=== PATIENT | female | born 1985 | race Caucasian/White ===

== ENCOUNTER 2017-03-22 20:09 | Emergency (ER) | payer MEDICARE, OTHER ==
[~2017-03-22] VITALS: Wt 91.0 kg
--- NOTE | 2017-03-22 21:06 | ERD ---
ER Documentation Chief Complaint Date/Time DATE: 03/22/17 TIME: 21:03 Chief Complaint AP left lower quadrant. possible cyst per pt verbatum x1 wk intermittent HPI This 31-year-old female presents to emergency department today for evaluation ofleft sided ABD pain with vomiting x 5 today, symptoms started after eating chicken last week . pt has vomited all week intermitted. pt tried Advil for symptoms. symptoms worse with eating meat ROS All systems reviewed and are negative except as per history of present illness. Allergies Allergies: Coded Allergies: No Known Allergy (Unverified , 03/22/17) Physical Exam Vitals Vital Signs Date Time Temp Pulse Resp B/P Pulse Ox O2 Delivery O2 Flow Rate FiO2 03/22/17 20:14 98.6 74 20 117/82 97 Physical Exam Const: Obese well appearing well-hydrated, no acute distress Head: Eyes: ENT: Normal External Ears, Nose and Mouth. Neck: Full range of motion..~ No meningismus.Mucous membranes moist Resp: Clear to auscultation bilaterally no rales wheezes or rhonchi Cardio: S1-S2 no S3-S4 Regular rate and rhythm, no murmurs Abd: Abdomen soft, non-tympanic, left lower quadrant tenderness. Skin: Back: No midline or flank tenderness Ext: Neur: Awake and alert Psych: Normal Mood and Affect Result Diagram: 03/22/17212603/22/172126 Results 24 hrs Laboratory Tests Test 03/22/17 21:27 03/22/17 22:33 White Blood Count 11.910^3/ul Red Blood Count 5.3710^6/ul Hemoglobin 14.2g/dl Hematocrit 43.7% Mean Corpuscular Volume 81.4fl Mean Corpuscular Hemoglobin 26.4pg Mean Corpuscular Hemoglobin Concent 32.5g/dl Red Cell Distribution Width 13.4% Platelet Count 90452^3/UL Mean Platelet Volume 11.2fl Neutrophils % 84.9% Lymphocytes % 10.9% Monocytes % 3.5% Eosinophils % 0.0% Basophils % 0.3% Nucleated Red Blood Cells % 0.0/100WBC Neutrophils # (Manual) 10.110^3/ul Lymphocytes # 1.310^3/ul Monocytes # 0.410^3/ul Eosinophils # 0.010^3/ul Basophils # 0.010^3/ul Nucleated Red Blood Cells # 0.010^3/ul Sodium Level 143mmol/L Potassium Level 3.7mmol/L Chloride Level 105mmol/L Carbon Dioxide Level 29mmol/L Anion Gap 13 Blood Urea Nitrogen 9mg/dl Creatinine 0.70mg/dl Glucose Level 114mg/dl Calcium Level 9.7mg/dl Total Bilirubin 0.4mg/dl Direct Bilirubin 0.00mg/dl Indirect Bilirubin 0.4mg/dl Aspartate Amino Transf (AST/SGOT) 18IU/L Alanine Aminotransferase (ALT/SGPT) 35IU/L Alkaline Phosphatase 86IU/L Total Protein 7.8g/dl Albumin 4.4g/dl Globulin 3.40g/dl Albumin/Globulin Ratio 1.29 Lipase 32U/L Urine Color YELLOW Urine Clarity CLEAR Urine pH 6.0 Urine Specific [place] 1.023 Urine Ketones 1+mg/dL Urine Nitrite NEGATIVEmg/dL Urine Bilirubin NEGATIVEmg/dL Urine Urobilinogen NEGATIVEmg/dL Urine Leukocyte Esterase NEGATIVELeu/ul Urine Microscopic RBC 17/HPF Urine Microscopic WBC 1/HPF Urine Mucus FEW/HPF Urine Hemoglobin 1+mg/dL Urine Glucose NEGATIVEmg/dL Urine Total Protein NEGATIVEmg/dl Current Medications Medications (Trade) Dose Ordered Sig/Santiago Route PRN Reason Start Time Stop Time Status Last Admin Dose Admin Sodium Chloride (NS) 1,000 ml @ 1,000 mls/hr Q1H STAT IV 03/22/17 21:07 03/22/17 22:06 DC 03/22/17 21:31 Ondansetron HCl (Zofran Inj) 4 mg ONCE STAT IV 03/22/17 21:07 03/22/17 21:11 DC 03/22/17 21:31 Ketorolac Tromethamine (Toradol) 15 mg ONCE STAT IV 03/22/17 21:07 03/22/17 21:11 DC 03/22/17 21:07 Interpretation text CBC shows no evidence of hemorrhage or infection WBC is mildly elevated Chemistry shows no evidence of significant electrolyte abnormalities or renal insufficiency Liver function tests shows no evidence of acute biliary or hepatic dysfunction Lipase shows no evidence of acute pancreatitis Procedures/MDM PROCEDURE: CT abdomen and pelvis without intravenous contrast. CLINICAL INDICATION: Pain. TECHNIQUE: CT of the abdomen/pelvis was performed utilizing axial images with reconstructions in sagittal and coronal planes. The administered radiation dose is CTDI 22 mGy, DLP 1340 mGy-cm. One or more of the following dose reduction techniques were used: automated exposure control, adjustment of the mA and/or kV according to patient size and/or use of iterative reconstruction technique. COMPARISON: No pertinent prior examinations were submitted for comparison. FINDINGS: Visualized Chest: The visualized lung bases are clear. Abdomen: The spleen, pancreas, and adrenal glands are unremarkable. The liver is diffusely decreased in attenuation, compatible with hepatic steatosis. Numerous stones are noted throughout the gallbladder. The kidneys are without hydronephrosis. No definite urinary calculi are seen. There is no evidence of bowel obstruction. The appendix is normal. No intra- abdominal free air is seen. There is no evidence of intra-abdominal adenopathy or free fluid. Pelvis: There is no evidence of pelvic adenopathy. The uterus and ovaries are without enlargement. The urinary bladder is unremarkable. There is no pelvic free fluid. Osseous structures: Unremarkable. IMPRESSION: No acute findings. Hepatic steatosis. Cholelithiasis. Electronically viewed and signed by .Arnoldo Ling MD, on 03/23/2017 00:53 This 31-year-old female presents to emergency department for evaluation of left lower abdominal pain. Vomiting, without complaint of diarrhea, constipation, fever, chills, chest pain, shortness of breath. Patient states that she has been told she has a ovarian cyst on the left ovary, states she has had her right ovary removed secondary to ovarian torsion. Reports urinary tract infection 2 months ago Emergency room course includes 1 L of normal saline, Toradol IV, Zofran IV, and laboratory testing. There is no evidence of acute infection, WBCs are mildly elevated at 11.9. No evidence of anemia or acute blood loss, electrolytes without dysfunction, no hepatitis, or pancreatitis, urinalysis negative for leukocytosis or nitrates . Noncontrast CT of abdomen and pelvis is read by the radiologist documents there is no evidence of pelvic adenopathy. Uterus and ovaries are without enlargement. Urinary bladder is unremarkable. There is no pelvic free fluid. Osseous structures are unremarkable. Impression no acute finding. Hepatic steatosis, cholelithiasis. Patient will be discharged home with Zofran, [place], dietary and lifestyle modifications discussed. Follow-up with primary physician for evaluation of hepatic stenosis and cholelithiasis. Patient is stable with no new complaints during ER course, clinically there is no current evidence to suggest pancreatitis, biliary colic, biliary obstruction sepsis, acute abdomen, acute coronary syndromes or any other emergent condition appearing to require further evaluation or hospitalization. I feel the patient is stable for discharge at this time. I have discussed results, examination findings, the treatment plan with the patient and family present prior to discharge. Indications for emergent reevaluation, side effects of medication were also discussed. All questions were answered. Patient verbalizes understanding and agrees with plan of care. Departure Diagnosis: Primary Impression: Hepatic steatosis Additional Impression: Cholelithiases Cholelithiasis location: gallbladder Cholecystitis presence: without cholecystitis Biliary obstruction: without biliary obstruction Qualified Code : K80.20 - Calculus of gallbladder without cholecystitis without obstruction Condition: Good Patient Instructions: Gallstones, Non-Alcoholic Fatty Liver Disease (NAFLD), Treating Gallstones [facility] Additional Instructions: Thank you for for coming to [facility] for your care today. Please ask your nurse or provider if you have questions about your care today and do not leave until all your questions have been answered. Please use any medications given as directed and follow-up with your doctor (or the doctor you were referred to) in the next 2-3 days. If you do not have a primary care doctor you may follow up at the [facility] (listed below). You may also use motrin and tylenol as needed for fever and/or pain unless instructed otherwise by your provider or nurse. Indications for more urgent follow-up have been discussed, but you may return to the Emergency Department at ANY time for any worrisome or worsening symptoms. If you have abdominal pain, please know that no test or exam you received is perfect and you should follow up within 8 hours for continued pain. If you had any imaging studies today, such as an X-Ray or CT Scan, these studies will be reviewed later by a radiologist. You will be called if there are important findings that were not identified today, so make sure the contact information you provided at registration is correct. If you received any narcotic pain control medicine today, such as Vicodin, Morphine or Dilaudid, your coordination and judgment may be affected for a number of hours. Please do not drive or operate heavy machinery, and you may want someone to assist you at home. If you were given a prescription for narcotic medication, be aware that it is very addictive- use sparingly and only if necessary. BRUCE CHAMPAGNE Mar 22, 2017 21:06
[2017-03-22] MEDS ORDERED: ONDANSETRON 4 MG INJ IV STA (21:07)
[2017-03-22] MEDS ORDERED: SOD CHLORIDE 0.9% 1,000 ML IV STA (21:07)
[2017-03-22] MEDS ORDERED: KETOROLAC 15 MG INJ IV STA (21:07)
[2017-03-22 21:54] LABS: BASOPHILS % 0.3 % (0.0-2.0); HEMATOCRIT 43.7 % (37.0-47.0); HEMOGLOBIN 14.2 g/dl (12.0-16.0); LYMPHOCYTES # 1.3 10^3/ul (0.8-2.9); LYMPHOCYTES % 10.9 % (15.0-51.0); MEAN CORPUSCULAR HEMOGLOBIN 26.4 pg (29.0-33.0); MEAN CORPUSCULAR HGB CONC 32.5 g/dl (32.0-37.0); MEAN CORPUSCULAR VOLUME 81.4 fl (82.0-101.0); MEAN PLATELET VOLUME 11.2 fl (7.4-10.4); MONOCYTE # 0.4 10^3/ul (0.3-0.9); MONOCYTES % 3.5 % (0.0-11.0); NEUTROPHILS % 84.9 % (39.0-77.0); PLATELET COUNT 252 10^3/UL (140-415); RED BLOOD COUNT 5.37 10^6/ul (4.20-5.40); RED CELL DISTRIBUTION WIDTH 13.4 % (11.5-14.5); WHITE BLOOD COUNT 11.9 10^3/ul (4.8-10.8)
[2017-03-22 22:17] LABS: ALBUMIN 4.4 g/dl (3.3-4.9); ALBUMIN/GLOBULIN RATIO 1.29; BILIRUBIN,INDIRECT 0.4 mg/dl (0-1.1); BILIRUBIN,TOTAL 0.4 mg/dl (0.2-1.3); CALCIUM 9.7 mg/dl (8.4-10.2); CREATININE 0.7 mg/dl (0.44-1.00); POTASSIUM 3.7 mmol/L (3.5-5.1); TOTAL PROTEIN 7.8 g/dl (6.1-8.1)
[2017-03-22 23:19] LABS: ADD UMIC YES; UR ASCORBIC ACID NEGATIVE (NEGATIVE); UR BILIRUBIN (Dip) NEGATIVE (NEGATIVE); UR BLOOD (Dip) 1+ mg/dL (NEGATIVE); UR CLARITY CLEAR (CLEAR); UR COLOR YELLOW (YELLOW); UR GLUCOSE (Dip) NEGATIVE (NEGATIVE); UR KETONES (Dip) 1+ mg/dL (NEGATIVE); UR LEUKOCYTE ESTERASE (Dip) NEGATIVE Leu/ul (NEGATIVE); UR MUCUS FEW /HPF (NONE SEEN); UR NITRITE (Dip) NEGATIVE (NEGATIVE); UR RBC 17 /HPF (0-5); UR SPECIFIC GRAVITY (Dip) 1.023 (1.003-1.030); UR TOTAL PROTEIN (Dip) NEGATIVE (NEGATIVE); UR UROBILINOGEN (Dip) NEGATIVE (NEGATIVE)
--- NOTE | 2017-03-23 00:53 | RADRPT ---
PROCEDURE: CT abdomen and pelvis without intravenous contrast. CLINICAL INDICATION: Pain. TECHNIQUE: CT of the abdomen/pelvis was performed utilizing axial images with reconstructions in s agittal and coronal planes. The administered radiation dose is CTDI 22 mGy, DLP 1340 mGy-cm. One or more of the following dose reduction techniques were used: automated exposure control, adjustment of the mA and/or kV according to patient size and/or use of iterative reconstruction technique. COMPARISON: No pertinent prior examinations were submitted for comparison. FINDINGS: Visualized Chest: The visualized lung bases are clear. Abdomen: The spleen, pancreas, and adrenal glands are unremarkable. The liver is diffusely decreased in at tenuation, compatible with hepatic steatosis. Numerous stones are noted throughout the gallbladder. The kidneys are without hydronephrosis. No definite urinary calculi are seen. There is no evidence of bowel obstruction. The appendix is normal. No intra-abdominal free air is seen. There is no evidence of intra-abdominal adenopathy or free fluid. Pelvis: There is no evidence of pelvic adenopathy. The uterus and ovaries are without enlargement. The uri nary bladder is unremarkable. There is no pelvic free fluid. Osseous structures: Unremarkable. IMPRESSION: No acute findings. Hepatic steatosis. Cholelithiasis. RPTAT: HIKT .Arnoldo Ling MD, MD Date Time Electronically viewed and signed by .Arnoldo Ling MD, MD on 03/23/2017 00:53 .T/
[2017-03-23] MEDS ORDERED: ONDA4TAB14 PO (01:56)
[2017-03-23] MEDS ORDERED: HYDR-906 PO (01:57)
[2017-03-23 02:28] VITALS: BP 109/71; PULSE 72; RESP 17; TEMP 98
== END 2017-03-23 02:28 | disposition home or self-care (01) ==
LOC: FTE 20:09
DX: K76.0 Fatty (change of) liver, not elsewhere classified (principal); K80.20 Calculus of gallbladder without cholecystitis without obstruction
CPT/HCPCS: 36415; 74176; 80053; 81001; 83690; 85025; 96361; 96374; 96375; 99285; J1885; J2405; J7030